=== PATIENT | female | born 1950 | race Two or more races ===

== ENCOUNTER 2022-05-31 16:46 | Emergency (ER) | payer OTHER ==
[~2022-05-31] VITALS: Ht 152.4 cm; Wt 47.6 kg
[2022-05-31] MEDS ORDERED: COZAAR50 MG PO (17:29)
[2022-05-31] MEDS ORDERED: EZALLOR SPRINKL20 MG PO (17:29)
[2022-05-31] MEDS ORDERED: PANTOPRAZOLE SO40 M2 PO (17:29)
[2022-05-31] MEDS ORDERED: METOCLOPRAM5 MG/5 M1 PO (17:29)
[2022-05-31] MEDS ORDERED: CENTRUM ADULT120 MCG PO (17:30)
== END 2022-05-31 21:52 | disposition home or self-care (01) ==
LOC: ER 16:46
DX: M50.30 Other cervical disc degeneration, unspecified cervical region (principal); Z88.0 Allergy status to penicillin; Z88.6 Allergy status to analgesic agent; E11.9 Type 2 diabetes mellitus without complications; I10 Essential (primary) hypertension; M19.012 Primary osteoarthritis, left shoulder